=== PATIENT | female | born 1965 | race Caucasian/White ===

== ENCOUNTER → 2017-04-11 | Outpatient (CLI) | payer OTHER ==
[~2017-04-11] MED LIST: AMOX1TAB43 PO; RANI75TA7 PO; TRET1CRE34 TOP; TRIATAB3 PO
--- NOTE | 2017-04-11 12:33 | DIAGNOSTIC IMAGING REPORT ---
CAROTID DOPPLER NECK ART HISTORY: Mental status change H93.A9 Pulsatile [id number] COMPARISON: None. TECHNIQUE: Real-time, grayscale, and color Doppler sonography of the carotid arteries was performed. Imaging reviewed in the transverse and longitudinal planes. All measurements were calculated based on NASCET criteria. FINDINGS: Antegrade flow is seen in the bilateral vertebral arteries. The brachial pressures are hemodynamically similar. Mild plaque bilaterally. The peak systolic velocity within the right ICA is 80. The right systolic ratio is 1.2. The peak systolic velocity within the left ICA is 59. The left systolic ratio is 0.9. IMPRESSION: No hemodynamically significant stenosis seen within the carotid arteries. Minimal plaque formation bilaterally The above report was generated using voice recognition software. It may contain grammatical, syntax or spelling errors. Electronically signed by: Severo Avalos M.D. 04/11/2017 12:32 PM Dictated Date/Time: 04/11/2017 12:31 PM
--- NOTE | 2017-04-11 13:19 | DIAGNOSTIC IMAGING REPORT ---
THYROID ULTRASOUND CLINICAL HISTORY: Thyromegaly. COMPARISON STUDY: None. TECHNIQUE: Sonography of the thyroid gland was performed. FINDINGS: The right thyroid lobe measures 4.2 x 1.3 x 1.6 cm and the left lobe measures 5.2 x 1.6 x 2.1 cm. The gland is mildly heterogeneous. There are several subcentimeter hypoechoic/cystic thyroid nodules, the largest of which is a 0.7 x 0.5 x 0.5 cm septated cystic nodule within the lower pole of the left thyroid lobe. These suggest colloid cysts. There are no suspicious thyroid nodules. IMPRESSION: 1. Several subcentimeter thyroid nodules suggestive of colloid cysts. No suspicious nodules by sonography. 2. Normal size, slightly heterogeneous thyroid gland. Electronically signed by: José Miguel Sheehan M.D. 04/11/2017 1:18 PM Dictated Date/Time: 04/11/2017 1:16 PM
== END | disposition home or self-care (01) ==
LOC: C.ULTR 11:32
PROVIDERS: ATTEND Physician Assistant Medical
DX: E01.0 Iodine-deficiency related diffuse (endemic) goiter (principal); H93.A9 Pulsatile tinnitus, unspecified ear